=== PATIENT | female | born 1950 ===

== ENCOUNTER 2017-02-18 16:38 | Emergency (ER) | payer OTHER ==
[2017-02-18 16:45] VITALS: BP 134/74; PULSE 68; RESP 18; TEMP 97.4; O2SAT 99
--- NOTE | 2017-02-18 17:18 | ED PDOC ---
HPI: Trauma/Fall - HPI Time Seen by Provider: 02/18/17 16:59 Chief Complaint (Nursing): Trauma Chief Complaint (Provider): Left Breast Pain History Per: Patient History/Exam Limitations: no limitations Additional Complaint(s): Estefani Barber, a 66 year old female, presents tot he ED complaining of pain in her left breast. The patient states that around 11 this morning she was walking when she tripped and fell into the street. She reports that the pain is felt in the middle of her left breast. The patient also states that her knee hurts on the joint and she has a cut on her palm. - Fall Fall:Prior To Injury: Tripped Past Medical History Reviewed: Historical Data, Nursing Documentation, Vital Signs Vital Signs: Last Vital Signs Temp 97.4 F L 02/18/17 16:42 Pulse 68 02/18/17 16:42 Resp 18 02/18/17 16:42 BP 134/74 02/18/17 16:42 Pulse Ox 99 02/18/17 18:39 - Medical History PMH: Diabetes - Surgical History Surgical History: No Surg Hx - Family History Family History: States: Unknown Family Hx - Social History Current smoker - smoking cessation education provided: No Ex-Smoker (has not smoked in the last 12 months): No Alcohol: None Drugs: Denies - Allergies Allergies/Adverse Reactions: Allergies Allergy/AdvReac Type Severity Reaction Status Date / Time Penicillins Allergy RASH Verified 02/18/17 16:42 Review of Systems Musculoskeletal: Positive for: Other (Knee pain on joint). Negative for: Hand Pain (Cut to the left palm) Physical Exam - Reviewed Nursing Documentation Reviewed: Yes Vital Signs Reviewed: Yes - Physical Exam Appears: Positive for: Non-toxic, No Acute Distress Head Exam: Positive for: ATRAUMATIC, NORMAL INSPECTION, NORMOCEPHALIC Skin: Positive for: Normal Color, Warm, Dry Eye Exam: Positive for: Normal appearance, EOMI, PERRL Cardiovascular/Chest: Positive for: Regular Rate, Rhythm, Chest Non Tender. Negative for: Murmur, Bradycardia, Tachycardia Respiratory: Positive for: Normal Breath Sounds. Negative for: Wheezing, Respiratory Distress Extremity: Positive for: Normal ROM, Tenderness (Mild tenderness to left breast. ), Other (Scarring to left knee.). Negative for: Calf Tenderness, Deformity, Swelling Neurologic/Psych: Positive for: Alert, Oriented, Gait - ECG O2 Sat by Pulse Oximetry: 99 (RA) Pulse Ox Interpretation: Normal Medical Decision Making Medical Decision Makin Initial Impression: 66 year old female presenting with left breast pain Initial Plan: * EKG * EKG-ED * CXR * RAD left Knee * Reevaluation 5 Patient states that she does not want anything for pain she only wants the xrays done. 183 CXR performed Findings: Lungs-No active pulmonary disease Pleura- No significant pleural effusion identified. No pneumothorax apparent. Cardiovascular-normal Osseous structures- no significant abnormalities Visualized upper abdomen - normal 184 RAD as read by ER PAJj * No fracture * No dislocation * Mild degenerative changes Scribe Attestation Documented by Katiuska Self acting as a scribe for Christine Jacob PA-C. Scribe Attestation All medical record entries made by the Scribe were at my direction and personally dictated by me. I have reviewed the chart and agree that the record accurately reflects my personal performance of the history, physical exam, medical decision making, and the department course for this patient. I have also personally directed, reviewed, and agree with the discharge instructions and disposition. Disposition - Clinical Impression Clinical Impression: Tripping over things, Knee pain, Chest wall discomfort - Patient ED Disposition Is Patient to be Admitted: No Counseled Patient/Family Regarding: Studies Performed - Disposition Disposition: Routine/Home Disposition Time: 18:50 Condition: STABLE Instructions: Fall Prevention for Older Adults (ED) Print Language: SYRIAC
--- NOTE | 2017-02-18 18:33 | RAD ---
HISTORY: chest/breast pain s/p fall COMPARISON: No prior. TECHNIQUE: Chest PA and lateral FINDINGS: LUNGS: No active pulmonary disease. PLEURA: No significant pleural effusion identified. No pneumothorax apparent. CARDIOVASCULAR: Normal. OSSEOUS STRUCTURES: No significant abnormalities. VISUALIZED UPPER ABDOMEN: Normal. OTHER FINDINGS: None. IMPRESSION: No active disease.
--- NOTE | 2017-02-19 08:12 | CARD ---
APPROVED REPORT EKG Measurement Heart [id number] <Conclusion> Sinus rhythm with occasional premature ventricular complexes Possible Left atrial enlargement Borderline ECG
--- NOTE | 2017-02-19 15:24 | RAD ---
PROCEDURE: Left Knee Radiographs. . HISTORY: Pain. COMPARISON: None. FINDINGS: BONES: No definitive radiographic evidence of acute displaced fracture nor dislocation. The osseous structures appear intact. JOINTS: Joint spaces preserved. . Prominent anterior and smaller on inferior patella enthesophytes are present JOINT EFFUSION: . Questionable trace joint effusion. OTHER FINDINGS: None. IMPRESSION: No evidence of acute displaced fracture nor dislocation. If symptoms persist or occult fracture suspected clinically recommend repeat radiographs in 5-10 days as most fractures should become radiographically evident in this timeframe. Patella enthesophyte formation as above.
== END 2017-02-18 18:56 | disposition home or self-care (01) ==
LOC: H.ER 16:38
DX: N64.4 Mastodynia (principal); M25.562 Pain in left knee; W19.XXXA Unspecified fall, initial encounter; Y92.89 Other specified places as the place of occurrence of the external cause